=== PATIENT | female | born 1985 | race Caucasian/White ===

== ENCOUNTER 2016-12-27 12:42 | Day surgery (SDC) | payer BC ==
[~2016-12-27] VITALS: Ht 157.5 cm; Wt 72.6 kg
[~2016-12-27 12:42] MED LIST: BETAMETHASO IM; IBUPROFEN200 M1 PO; MOTRIN800 MG PO; Motrin PO; PERCOCET 5/31 TABLET PO; PREFERA-OB P1 TABLET PO; PRENATAL TABLE1 EAC3 PO; PROCARDIA20 MG PO; Percocet 5/325,Endoc PO; TYLENOL REGULA325 MG PO; Tylenol Extra Streng PO; VENLAFAXINE H37.5 M3 PO
[2016-12-27 13:09] VITALS: BP 138/69
[2016-12-27] MEDS ORDERED: NORCO 5/3251 TABLET PO (15:33)
[2016-12-27 17:12] VITALS: BP 111/60
[2016-12-27 18:10] VITALS: BP 101/51
[2016-12-27 19:25] VITALS: BP 120/68
== END 2016-12-27 19:25 | disposition home or self-care (01) ==
LOC: SDC 12:42
PROC: 0FT44ZZ Resection of Gallbladder, Percutaneous Endoscopic Approach (ICD-10-PCS; principal; 2016-12-27)
DX: K80.10 Calculus of gallbladder with chronic cholecystitis without obstruction (principal); I73.00 Raynaud's syndrome without gangrene; F32.9 Major depressive disorder, single episode, unspecified
CPT/HCPCS: 88304; J0131; J0330; J1100; J1170; J1885; J2405; J2710; J3010